=== PATIENT | female | born 1945 | race Caucasian/White ===

== ENCOUNTER 2024-08-23 18:10 | Inpatient (IN) | payer MEDICAID ==
[~2024-08-23] VITALS: Ht 172.7 cm; Wt 95.9 kg
[2024-08-23] MEDS: AMLODIPINE 10MG TABLET PO SCH (01:15)
[2024-08-23] MEDS: SODIUM CHLORIDE 0.45% 1,000 ML IV SCH (01:46)
[2024-08-23 18:33] LABS: BASOPHILS % 0.4 % (0.0-2.0); EOSINOPHILS % 0.5 % (0.0-5.0); HEMOGLOBIN. 13.4 g/dL (12.0-16.0); LYMPHOCYTES % 30.2 % (20.0-50.0); MEAN CORPUSCULAR HEMOGLOBIN 28.5 pg (28.0-32.0); MEAN CORPUSCULAR HGB CONC 32.8 g/dL (31.0-37.0); MEAN PLATELET VOLUME 7.5 fl (7.4-10.4); MONOCYTES % 7.9 % (2.0-8.0); PLATELET 359 x1000/uL (130-400); RED BLOOD CELL COUNT 4.72 mill/uL (4.2-5.4); RED CELL DISTRIBUTION WIDTH 14.2 % (11.6-14.6); WHITE BLOOD COUNT 11.3 x1000/uL (4.5-11.0)
[2024-08-23 18:41] LABS: CHLORIDE 109 mEq/L (98-107); POTASSIUM 3.5 mEq/L (3.5-5.1); SODIUM 139 mEq/L (136-145)
[2024-08-23 18:42] LABS: CARBON DIOXIDE 23 mEq/L (21-32)
[2024-08-23 18:43] LABS: CALCIUM 9.2 mg/dL (8.7-10.4); PROTHROMBIN TIME 10.7 sec (9.6-11.0)
[2024-08-23 18:47] LABS: CREATININE 0.9 mg/dL (0.6-1.0)
[2024-08-23 18:48] LABS: GLUCOSE 139 mg/dL (70-105); UREA NITROGEN BLOOD 10 mg/dL (9-23)
[2024-08-23 18:49] LABS: ACETAMINOPHEN < 2 ug/mL (10-30); ETHANOL BLOOD < 10 mg/dL (<10); TROPONIN I HIGH SENSITIVITY < 4 ng/L (3.0-34)
[2024-08-23 18:50] LABS: CREATINE KINASE 46 IU/L (34-145)
[2024-08-23 18:52] LABS: THYROID STIMULATING HORMONE 1.18 uIU/mL (0.55-4.78)
[2024-08-23 18:53] LABS: BG BASE EXCESS 1.1 mmol/L (-2.0-3.0); BG CARBOXYHEMOGLOBIN 0.9 % (0.5-1.5); BG DEOXYHEMOGLOBIN 9.9 % (0.0-5.0); BG FRACTION INSPIRED OXYGEN 28; BG HCO3 ACT 26.8 mmol/L (21.0-28.0); BG OXYHEMOGLOBIN 89.2 % (94.0-98.0); BG PCO2 46.5 mmHg (32.0-45.0); BG PH 7.378 (7.350-7.450); BG PO2 57.6 mmHg (83.0-108.0); BG SAMPLE SITE LEFT RADIAL; BG TOTAL HEMOGLOBIN 13.7 g/dL (12.0-16.0); BG VENT MODE NASAL CANNULA
[2024-08-23] MEDS: NICARDIPINE 40MG/200ML PREMIX 200 ML IV PRN (19:30)
[2024-08-23] MEDS: AMPICILLIN SOD/SULBACTAM NA 3 G in SODIUM CHLORIDE 0.9% 100 ML IV SCH (20:27)
[2024-08-23] MEDS: SODIUM CHLORIDE 0.9% 1,000 ML IV ONE (20:27)
[2024-08-23] MEDS: IOHEXOL-350 100 ML BOTTLE ONE (20:27)
[2024-08-23] MEDS: ONDANSETRON HCL 4MG/2ML INJ IV STA (20:51)
[2024-08-23 21:38] LABS: TROPONIN I HIGH SENSITIVITY 5 ng/L (3.0-34)
[2024-08-23] MEDS ORDERED: IPRATROPIUM/ALBUTEROL 0.5-3(2.5)MG/3ML NEB HHN PRN (22:15)
[2024-08-23] MEDS ORDERED: GUAIFENESIN 200MG/10ML SUGAR FREE UDC PO PRN (22:15)
[2024-08-23] MEDS ORDERED: HALOPERIDOL LACTATE 5MG/ML VIAL IM ONE (22:15)
[2024-08-23] MEDS ORDERED: DOCUSATE SODIUM 100MG CAPSULE PO PRN (22:15)
[2024-08-23] MEDS ORDERED: ACETAMINOPHEN 325MG TABLET PO PRN (22:15)
[2024-08-23] MEDS ORDERED: MAGNESIUM/ALUMINUM HYDROXIDE/SIMETHICONE 30ML UDC PO PRN (22:15)
[2024-08-23] MEDS ORDERED: CLONIDINE 0.1MG TABLET PO PRN (22:15)
[2024-08-23] MEDS ORDERED: HYDRALAZINE 20MG/ML VIAL IV PRN (23:15)
[2024-08-23 23:18] LABS: PHOSPHORUS 2.7 mg/dL (2.5-4.9)
[2024-08-23 23:19] LABS: AMMONIA < 17 uMol/L (<32)
[2024-08-24 02:11] VITALS: BP 133/59; PULSE 61; RESP 18; TEMP 36.44736; O2SAT 96
[2024-08-24 07:02] VITALS: BP 141/68; PULSE 84; RESP 18; TEMP 36.83628; O2SAT 96
[2024-08-24 08:17] LABS: CHLORIDE 107 mEq/L (98-107); POTASSIUM 4.1 mEq/L (3.5-5.1); SODIUM 143 mEq/L (136-145)
[2024-08-24 08:18] LABS: CARBON DIOXIDE 27 mEq/L (21-32)
[2024-08-24 08:23] LABS: CREATININE 0.8 mg/dL (0.6-1.0); GLUCOSE 77 mg/dL (70-105)
[2024-08-24 08:24] LABS: LDL CHOLESTEROL 139 mg/dL (5-100); TRIGLYCERIDE 113 mg/dL (0-150); UREA NITROGEN BLOOD 10 mg/dL (9-23)
[2024-08-24 08:25] LABS: CHOLESTEROL 205 mg/dL (<200); HDL CHOLESTEROL 55 mg/dL (>65); T4 FREE 1.28 ng/dL (0.89-1.76)
[2024-08-24] MEDS: ASPIRIN 81MG EC TABLET PO SCH (08:32)
[2024-08-24] MEDS: PANTOPRAZOLE SODIUM 40 MG/VIAL IV SCH (08:32)
[2024-08-24 08:39] LABS: BASOPHILS % 0.3 % (0.0-2.0); EOSINOPHILS % 0.2 % (0.0-5.0); HEMATOCRIT. 41.5 % (36.0-48.0); HEMOGLOBIN. 13.5 g/dL (12.0-16.0); MEAN CORPUSCULAR HEMOGLOBIN 28.8 pg (28.0-32.0); MEAN CORPUSCULAR HGB CONC 32.6 g/dL (31.0-37.0); MEAN CORPUSCULAR VOLUME 88.2 fL (81.0-99.0); MONOCYTES % 7.9 % (2.0-8.0); NEUTROPHILS % 71.6 % (40.0-76.0); RED CELL DISTRIBUTION WIDTH 14.3 % (11.6-14.6); WHITE BLOOD COUNT 9.6 x1000/uL (4.5-11.0)
[2024-08-24 08:55] LABS: DIFFERENTIAL COMMENT 1
[2024-08-24 10:44] LABS: BG BASE EXCESS 0.6 mmol/L (-2.0-3.0); BG DEOXYHEMOGLOBIN 2.8 % (0.0-5.0); BG FRACTION INSPIRED OXYGEN 21; BG HCO3 ACT 23.2 mmol/L (21.0-28.0); BG METHEMOGLOBIN 0.3 % (0.5-1.5); BG OXYGEN SATURATION 97.2 % (94.0-98.0); BG OXYHEMOGLOBIN 95.9 % (94.0-98.0); BG PCO2 31.3 mmHg (32.0-45.0); BG PH 7.487 (7.350-7.450); BG PO2 81.1 mmHg (83.0-108.0); BG SAMPLE SITE RIGHT BRACHIAL; BG TOTAL HEMOGLOBIN 13.7 g/dL (12.0-16.0); BG VENT MODE ROOM AIR
[2024-08-24 11:04] LABS: PLATELET 341 x1000/uL (130-400)
[2024-08-24 12:00] VITALS: BP 126/89; PULSE 89; RESP 19; TEMP 36.22512
[2024-08-24 16:00] VITALS: BP 127/68; PULSE 84; RESP 16; TEMP 36.9474; O2SAT 92
[2024-08-24 20:00] VITALS: BP 146/69; PULSE 86; RESP 18; TEMP 36.50292; O2SAT 96
[2024-08-24] MEDS: ONDANSETRON HCL 4MG/2ML INJ IV PRN (20:12)
[2024-08-24] MEDS: ATORVASTATIN CALCIUM 40MG TABLET PO SCH (20:12)
[2024-08-25] VITALS (7 sets, daily range): BP systolic 118–191; BP diastolic 59–68; PULSE 69–96; RESP 16–18; TEMP 36.28068–36.6696; O2SAT 93–99
[2024-08-25 01:31] LABS: TROPONIN I HIGH SENSITIVITY 5 ng/L (3.0-34)
[2024-08-25 01:32] LABS: ALANINE AMINOTRANSFERASE 8 IU/L (10-49); ALBUMIN 3.7 g/dL (3.2-4.8); ASPARTATE AMINOTRANSFERASE 12 IU/L (<34); BILIRUBIN DIRECT 0.1 mg/dL (<=3.0)
[2024-08-25 01:33] LABS: BILIRUBIN TOTAL 0.5 mg/dL (0.1-1.0); PROTEIN TOTAL 6.4 g/dL (6.0-8.3)
[2024-08-26] VITALS: BP 110/62; PULSE 76; RESP 16; TEMP 36.3918; O2SAT 99
[2024-08-26 04:00] VITALS: BP 104/57; PULSE 72; RESP 18; TEMP 36.3918; O2SAT 96
[2024-08-26 08:00] VITALS: BP 180/92; PULSE 81; RESP 19; TEMP 36.22512; O2SAT 95
[2024-08-26] MEDS: ACETAMINOPHEN 325MG TABLET PO PRN (10:47)
[2024-08-26 11:38] VITALS: BP 172/92; PULSE 81; TEMP 97.7; O2SAT 95
== END 2024-08-26 12:00 | disposition home or self-care (01) | DRG 52 ==
LOC: ER 18:10 → EDBEDREQ 18:27 → 5WST 21:33 → EDBD 21:33 → EDBEDREQ 22:20 → EDBEDREQTM 22:20
PROVIDERS: ADMIT Hospitalist; ATTEND Hospitalist
DX: G93.41 Metabolic encephalopathy (principal); J96.01 Acute respiratory failure with hypoxia; I16.0 Hypertensive urgency; I10 Essential (primary) hypertension; Z91.148 Patient's other noncompliance with medication regimen for other reason; Z79.899 Other long term (current) drug therapy
CPT/HCPCS: 36415; 36600; 70496; 70498; 70551; 71045; 74176; 80048; 80061; 80076; 80307; 80320; 80329; 82140; 82375; 82550; 82805; 82962; 83036; 83605; 83735; 83880; 84100; 84145; 84439; 84443; 84484; 85025; 85651; 86850; 86900; 87426; 93005; 93970; 97162; 97165; 99291; J0295; J2405; J2470; J7030; J7050; Q9967; G0480

== ENCOUNTER 2024-09-17 12:21 | Emergency (ER) | payer MEDICAID ==
[~2024-09-17] VITALS: Ht 167.6 cm; Wt 100.0 kg
[2024-09-17 12:29] VITALS: O2SAT 95
[2024-09-17] MEDS ORDERED: KETOROLAC 30MG/ML VIAL IV STA (12:51)
[2024-09-17] MEDS ORDERED: METOCLOPRAMIDE HCL 10MG/2ML VIAL IV ONE (13:00)
[2024-09-17 14:07] LABS: BASOPHILS % 0.7 % (0.0-2.0); CHLORIDE 104 mEq/L (98-107); EOSINOPHILS % 0.6 % (0.0-5.0); HEMATOCRIT. 41.9 % (36.0-48.0); LYMPHOCYTES % 22.7 % (20.0-50.0); MEAN CORPUSCULAR HEMOGLOBIN 28.8 pg (28.0-32.0); MEAN CORPUSCULAR HGB CONC 33.3 g/dL (31.0-37.0); MEAN CORPUSCULAR VOLUME 86.6 fL (81.0-99.0); MEAN PLATELET VOLUME 7.6 fl (7.4-10.4); MONOCYTES % 7.6 % (2.0-8.0); NEUTROPHILS % 68.4 % (40.0-76.0); PLATELET 344 x1000/uL (130-400); POTASSIUM 3.5 mEq/L (3.5-5.1); RED BLOOD CELL COUNT 4.84 mill/uL (4.2-5.4); RED CELL DISTRIBUTION WIDTH 14.1 % (11.6-14.6); SODIUM 140 mEq/L (136-145); WHITE BLOOD COUNT 6.7 x1000/uL (4.5-11.0)
[2024-09-17 14:08] LABS: CALCIUM 9.4 mg/dL (8.7-10.4); CARBON DIOXIDE 30 mEq/L (21-32)
[2024-09-17 14:13] LABS: CREATININE 0.8 mg/dL (0.6-1.0); GLUCOSE 89 mg/dL (70-105); UREA NITROGEN BLOOD 9 mg/dL (9-23)
[2024-09-17] MEDS: METOCLOPRAMIDE HCL 10MG/2ML VIAL IV NR (14:40)
[2024-09-17] MEDS: KETOROLAC 30MG/ML VIAL IV NR (14:40)
[2024-09-17] MEDS: SODIUM CHLORIDE 0.9% 1,000 ML IV ONE (14:40)
[2024-09-17] MEDS ORDERED: TOPUD PO (15:16)
[2024-09-17 16:50] VITALS: BP 145/83; PULSE 82; RESP 18; TEMP 36.72516; O2SAT 95
== END 2024-09-17 16:45 | disposition home or self-care (01) ==
LOC: ER 12:21
DX: R51.9 Headache, unspecified (principal); I10 Essential (primary) hypertension
CPT/HCPCS: 80048; 85025; 36415; 71045; 70450; 96361; 96374; 96375; 99285; J1885; J2765; J7030; Z7610